=== PATIENT | male | born 1965 | race Caucasian/White ===

== ENCOUNTER 2018-07-12 21:18 | Emergency (ER) | payer SELFPAY ==
[~2018-07-12] VITALS: Ht 172.7 cm; Wt 72.0 kg
[2018-07-12 21:24] VITALS: BP 125/86
== END 2018-07-13 01:40 | disposition left against medical advice (07) ==
LOC: ER 21:18
DX: F10.129 Alcohol abuse with intoxication, unspecified (principal); Z53.21 Procedure and treatment not carried out due to patient leaving prior to being seen by health care provider; Y90.9 Presence of alcohol in blood, level not specified

== ENCOUNTER 2021-08-29 13:26 | Emergency (ER) | payer MEDICAID ==
[~2021-08-29] VITALS: Ht 167.6 cm; Wt 68.0 kg
[2021-08-29 13:31] VITALS: BP 138/87
[2021-08-29] MEDS ORDERED: TOPUD MT (13:45)
[2021-08-29] MEDS ORDERED: ACETAMINOPHEN 325MG TABLET PO ONE (13:45)
[2021-08-29] MEDS ORDERED: CEPH500T MT (13:45)
[2021-08-29] MEDS ORDERED: CEPHALEXIN 250MG CAPSULE PO ONE (13:45)
== END 2021-08-29 14:02 | disposition home or self-care (01) ==
LOC: ER 13:26
DX: L03.114 Cellulitis of left upper limb (principal)
CPT/HCPCS: 99283